=== PATIENT | male | born 1990 | race Caucasian/White ===

== ENCOUNTER → 2022-06-30 10:42 | Outpatient (BNVA) | payer OTHER, SELFPAY | PROVIDERS: Visit Provider Internal Medicine | DX: M25.512 Pain in left shoulder (principal); R20.2 Paresthesia of skin | CPT/HCPCS: 99203 ==

== ENCOUNTER → 2022-07-02 13:37 | Outpatient (BNVA) | payer OTHER, SELFPAY | PROVIDERS: Visit Provider Internal Medicine | DX: M25.512 Pain in left shoulder (principal); R20.2 Paresthesia of skin | CPT/HCPCS: 99213 ==

== ENCOUNTER → 2022-07-07 08:08 | Outpatient (BNVA) | payer OTHER, SELFPAY | PROVIDERS: Visit Provider Internal Medicine | DX: M25.512 Pain in left shoulder (principal); R20.2 Paresthesia of skin | CPT/HCPCS: 72050; 99214 ==

== ENCOUNTER → 2022-07-20 09:05 | Outpatient (BNVA) | payer OTHER, SELFPAY | PROVIDERS: PCP Internal Medicine; Visit Provider Internal Medicine | DX: M54.2 Cervicalgia (principal); R20.2 Paresthesia of skin | CPT/HCPCS: 99213 ==

== ENCOUNTER 2022-07-27 18:57 | Outpatient (REF) | payer OTHER, SELFPAY ==
--- NOTE | ~2022-07-27 | MR_ITS ---
EXAMINATION: MR CERVICAL SPINE WITHOUT CONTRAST CLINICAL INFORMATION: Left arm and hand paresthesias. Fall at work. COMPARISON: X-ray cervical spine dated 07/07/2022. TECHNIQUE: Multiplanar, multisequential imaging of the cervical spine was performed without contrast. FINDINGS: VERTEBRAL BODIES AND PARASPINAL SOFT TISSUES: There is a reversal of the normal cervical lordosis with xdadmxlf-uf-zrdord disc space narrowing and bulky anterior endplate spurring at the C4-C5 level. There is a mild retrosubluxation and moderate loss of disc height at the C5-C6 level as well. The marrow signal is within normal limits. No compression fractures or subluxations are seen. The paraspinal soft tissues appear normal. The vertebral artery flow-voids are maintained. The imaged lung apices are grossly clear. CERVICOMEDULLARY JUNCTION AND VISUALIZED POSTERIOR FOSSA: The craniovertebral junction and imaged portions of the brain parenchyma appear normal. No cord signal abnormality or syrinx is seen. SPINAL LEVELS: C2-C3: No disc pathology, central canal stenosis, or foraminal encroachment. C3-C4: No disc abnormality. Patent central canal and foramina. C4-C5: Significant loss of disc height with a shallow disc-osteophyte complex and bulky anterior endplate spurring. No central canal stenosis. Moderate left foraminal narrowing. Mild right foraminal encroachment due to uncovertebral joint spurring. C5-C6: Mild retrosubluxation and disc-osteophyte complex with a focal left subarticular zone disc protrusion. Mild central canal stenosis and severe left foraminal narrowing. Rldyvqhg-dv-xjqyvb right foraminal encroachment as well. C6-C7: Minimal disc bulge and endplate spurring without central canal stenosis. Mild bilateral foraminal narrowing. C7-T1: No disc pathology, central canal stenosis, or foraminal narrowing. MR/MR cervical spine wo con IMPRESSION: 1. Moderate degenerative disc disease at the C4-C5 level with moderate left foraminal narrowing. No central canal stenosis. Reversal of the normal cervical lordosis. 2. Moderate spondylosis at the C5-C6 level with a mild retrosubluxation and focal left subarticular zone disc protrusion. Mild central canal stenosis and moderate to severe foraminal narrowing, worse on the left side.
== END 2022-07-27 18:58 | disposition home or self-care (01) ==
LOC: HO.MRI 18:57
PROVIDERS: Visit Provider Internal Medicine
DX: R20.2 Paresthesia of skin (principal); M50.90 Cervical disc disorder, unspecified, unspecified cervical region; W19.XXXA Unspecified fall, initial encounter; Y93.9 Activity, unspecified; Y92.9 Unspecified place or not applicable; Y99.0 Civilian activity done for income or pay
CPT/HCPCS: 72141

== ENCOUNTER → 2022-08-14 13:07 | Outpatient (BNVA) | payer OTHER, SELFPAY | PROVIDERS: PCP Internal Medicine; Visit Provider Internal Medicine | DX: M25.512 Pain in left shoulder (principal); R20.0 Anesthesia of skin | CPT/HCPCS: 99214 ==

== ENCOUNTER → 2022-08-27 13:04 | Outpatient (BNVA) | payer OTHER, SELFPAY | PROVIDERS: PCP Internal Medicine; Visit Provider Internal Medicine | DX: M50.30 Other cervical disc degeneration, unspecified cervical region (principal); M19.012 Primary osteoarthritis, left shoulder | CPT/HCPCS: 99213 ==

== ENCOUNTER 2022-09-08 08:00 | Outpatient (RCR) | payer OTHER, SELFPAY ==
[2022-07-20 08:13] VITALS: BP 130/92; PULSE 97; O2SAT 98
--- NOTE | 2022-07-20 09:59 | MHC.PT.EP ---
[facility] [place] Office [place] Office [place] Office [address] Thea Richmond [address] [phone] F: [phone] F: [phone] F: [phone] F: [phone] Physical Therapy Plan of Care Date of Evaluation: Date of Surgery: Diagnosis: LEFT ARM INJURY-> Pt FALL IN PIT , LEFT UE TINGLING Assessment: 32 YO MALE REF TO PT WITH LEFT UE/ CERVICAL TRAUMA AFTER SUSTAINING A FALL ONTO LEFT SIDE AT WORK ON 06/29/22. 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 OBJECTIVELY, Pt HAS LIMITED CERV AROM, (+) SOFT TISSUE IRRITABILITY LURDES CERV/THOR/PARASP MM, INTERMITTENT LEFT UE RADIC SXS W P&N Lt HAND, AND FLUCTUATING PAIN IN HIS LEFT CERV REGION. FUNCTIONALLY, Pt IS HAS DCER ANNE TO LIFTING/ CARRYING, PUSHING, SL LEFT IN BED- HE IS RESTRICTED AND SYMPTOMATIC W OVERHEAD REACHING COMBINED W DCERV EXTEN OR WITH ADLs REQ CERV ROTAT RIGHT. Pt WOULD BENEFIT FROM PT TO ADDRESS PAIN/ SX MGMT, IMPROVE CERV ROM, DEV A PROGR HEP, AND CENTRALIZE HIS LEFT UE RADICULOPATHY. Frequency and Duration: The patient will be seen 2 x WK x 4 WKS Short Term Goals: *Pt'S CERV/ UE PAIN DECR TO 2-3/10 AT MAX AND LEFT UE RADIC SXS DECR BY 75% IN 2 WKS *Pt DEMON IMPROVED CERV AROM/ REDUCED TISSUE TENSION IN 2 WKS *Pt DEMON PROPER POSTURE / BODY MECH W 3:3 SIMUL ADL/ WORK TASKS IN 2 WKS Senior Living Goals: *Pt INDEP W PROGR HEP AND SELF-SX MGMT TECHN IN 4 WKS *Pt'S SPADI SCORE IMPROVE BY 5-8 POINTS (AT EVAL 28/50) *Pt RTW REG DUTY W INDEP SELF-CORRECT OF BODY MECH AND POSITIONING IN 4 WKS Treatment Plan: Modalities to reduce pain, spasms and effusion. Manual therapy to restore motion and function. Therapeutic exercise to improve strength and flexibility. Neuromuscular re-education for posture and balance. Therapeutic activities to return to functional activities of daily living. Electronically signed by: Sabine Villalobos PT Please sign and return to therapist. Thank you for your referral.
--- NOTE | 2022-09-15 13:34 | MHC.PT.DC ---
[facility] [place] Office [place] Office [place] Office [address] Thea Richmond [address] [phone] F: [phone] F: [phone] F: [phone] F: [phone] Physical Therapy Discharge Report Diagnosis: LEFT ARM INJURY-> Pt FALL IN PIT , LEFT UE TINGLING Date of Surgery: Date of Evaluation: 07/20/22 Date of Discharge: 09/08/22 Treatments to Date: 14 Cancellations to Date: No Shows to Date: Discharge Status: Achieved Goals Improved Function Independent with HEP Recommend MD Follow-up Discharge Summary: Pt HAS MADE SOME PROGRESS IN PT- HE HAS A THOROUGH HEP W RESPECT TO HIS MRI FINDINGS, DEMON INDEP WITH SELF-SX MGMT TECHNIQUES - CENTRALIZATION, AND IS INDEP W SELF-POSTURAL CORRECTION W ADLs AND WORK TASKS. HIS SPADI SCORE HAS IMPROVED BY 15 POINTS. Pt STATED HE HAS A CONSULT WITH [facility] ON 09/21/22. Electronically signed by: ERICA LING,PT Please sign and return to therapist. Thank you for your referral.
== END 2022-09-15 13:37 | disposition home or self-care (01) ==
LOC: HO.PT 08:00
PROVIDERS: PCP Internal Medicine; Visit Provider Internal Medicine
DX: S49.92XD Unspecified injury of left shoulder and upper arm, subsequent encounter (principal); R20.2 Paresthesia of skin
CPT/HCPCS: 97012; 97110; 97140; 97162; 97530

== ENCOUNTER → 2023-07-16 13:40 | Outpatient (BNVA) | payer OTHER, SELFPAY | PROVIDERS: PCP Internal Medicine; Visit Provider Physician Assistant | DX: S39.012A Strain of muscle, fascia and tendon of lower back, initial encounter (principal); X58.XXXA Exposure to other specified factors, initial encounter | CPT/HCPCS: 99203 ==

== ENCOUNTER → 2023-07-21 14:04 | Outpatient (BNVA) | payer OTHER, SELFPAY | PROVIDERS: PCP Internal Medicine; Visit Provider Physician Assistant | DX: S39.012A Strain of muscle, fascia and tendon of lower back, initial encounter (principal); X58.XXXA Exposure to other specified factors, initial encounter | CPT/HCPCS: 99213 ==

== ENCOUNTER → 2023-08-10 09:12 | Outpatient (BNVA) | payer OTHER, SELFPAY | PROVIDERS: PCP Internal Medicine; Visit Provider Physician Assistant | DX: S39.012A Strain of muscle, fascia and tendon of lower back, initial encounter (principal); X58.XXXA Exposure to other specified factors, initial encounter | CPT/HCPCS: 99213 ==

== ENCOUNTER → 2023-08-24 13:47 | Outpatient (BNVA) | payer OTHER, SELFPAY | PROVIDERS: PCP Internal Medicine; Visit Provider Physician Assistant | DX: S39.012D Strain of muscle, fascia and tendon of lower back, subsequent encounter (principal); X58.XXXD Exposure to other specified factors, subsequent encounter | CPT/HCPCS: 99213 ==

== ENCOUNTER 2023-09-14 07:00 | Outpatient (RCR) | payer OTHER, SELFPAY ==
--- NOTE | 2023-08-13 10:21 | MHC.PT.EP ---
[facility] [place] Office [place] Office [place] Office [address] Thea Richmond [address] [phone] F: [phone] F: [phone] F: [phone] F: [phone] Physical Therapy Plan of Care Date of Evaluation: 08/13/23 Date of Surgery: NA Diagnosis: LUMBAR STRAIN Assessment: APTY IS A PLEASANT 36 YO MALE WHO PRESENTS S/P WORK INJURY. INITIALLY QUITE BAD BUT GRADUALLY RESOLVING HAS STAYED STATUS QUO OVER THE LAST WEEK OR SO. HE WAS AT WORK TAKING OUT A STUBBORN BOLT IN TWIST AND PRESSING MOTION, FELT SHARP IMMEDIATE PAIN ACROSS LOW BACK AND REQUIRED HELP TO RISE UP. TO WORK CONNECTION NEXT DAY. ALSO LEFT NECK AND SHOULDER INJURY WHICH HE IS ALSO RECEIVING TREATMENT FOR THAT WELL. 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 LIVES IN SINGLE FAMILY HOME WITH STAIRS TO BASEMENT. SOME ISSUES AT END OF DAY WITH STAIR NEGOTIATION AND DIFFICULTY WITH SLEEP. REPORTS PAIN WITH DF INTO POSTERIOR THIGH AND BACK. ALSO NOTES PAIN WITH SITTING IN A SLOUCHED POSITION. UPON EXAM IMPAIRMENTS INCLUDE SLIGHT DECREASE IN HIP AND CORE STRENGTH, DECREASED LUMBAR AND LEFT HIP ROM, ALTERED POSTURE AND POSITIONING, INCREASED TISSUE TENSION AND INCREASED PAIN. FUNCTIONAL LIMITATIONS INCLUDE DECREASED TOLERANCE TO WALKING, STATIC STANDING, STAIR NEGOTIATION AND PROLONGED SITTING. HE DEMONSTRATES DECREASED TOLERANCE TO LIFTING, PUSHING, PULLING AND REACHING. 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 Frequency and Duration: The patient will be seen 2 X WEEK FOR 4 WEEKS Short Term Goals: INITIATE HEP AND PROMOTE SELF MANAGEMENT OF SYMPTOMS Care Home Goals: FULL, PAIN FREE LUMBAR ROM TO PERFORM FULL FUNCTIONAL SQUAT WITH CORRECT MECHANICS AND NO VERBAL CUING TO PERFORM 3:3 LIFTING TASKS UP TO 50# WITHOUT CUING AND PAIN NO GREATER THAN 2/10 INDEPENDENT HEP AND SELF MANAGEMENT OF ANY RESIDUAL SYMPTOMS Treatment Plan: Modalities to reduce pain, spasms and effusion. Manual therapy to restore motion and function. Therapeutic exercise to improve strength and flexibility. Neuromuscular re-education for posture and balance. Therapeutic activities to return to functional activities of daily living. Electronically signed by: GORDO PLASSE PT DPT Please sign and return to therapist. Thank you for your referral.
--- NOTE | 2023-09-29 11:46 | MHC.PT.DC ---
[facility] [place] Office [place] Office [place] Office [address] Jacqueline Richmond [address] [phone] F: [phone] F: [phone] F: [phone] F: [phone] Physical Therapy Discharge Report Diagnosis: LUMBAR STRAIN Date of Surgery: NA Date of Evaluation: 08/13/23 Date of Discharge: 09/29/23 Treatments to Date: 6 Cancellations to Date: 0 No Shows to Date: 0 Discharge Status: Insurance Declined Tx Patient Elected to Stop Discharge Summary: LAST APPOINTMENT WAS CANCELLED, WE HAVE LEFT 2 VM TO RESCHEDULE BUT CALLS HAVE NOT BEEN RETURNED. INSURANCE END DATE IS TODAY THEREFORE WE WILL DC HIS CURRENT CHART. Electronically signed by: GORDO SCHWARTZ PT DPT Please sign and return to therapist. Thank you for your referral.
== END 2023-09-29 11:46 | disposition home or self-care (01) ==
LOC: HO.PT 07:00
PROVIDERS: PCP Internal Medicine; Visit Provider Physician Assistant
DX: S39.012D Strain of muscle, fascia and tendon of lower back, subsequent encounter (principal)
CPT/HCPCS: 97110; 97112; 97161; 97530

== ENCOUNTER → 2024-06-14 13:26 | Outpatient (BNVA) | payer OTHER, SELFPAY | PROVIDERS: PCP Internal Medicine; Visit Provider Physician Assistant | DX: M65.941 Unspecified synovitis and tenosynovitis, right hand (principal) | CPT/HCPCS: 73130; 99204 ==

== ENCOUNTER → 2024-06-30 08:39 | Outpatient (BNVA) | payer OTHER, SELFPAY | PROVIDERS: Visit Provider Physician Assistant | DX: M65.941 Unspecified synovitis and tenosynovitis, right hand (principal) | CPT/HCPCS: 99213 ==